=== PATIENT | male | born 1975 ===

== ENCOUNTER 2021-07-16 21:29 | Emergency (ER) | payer OTHER ==
[2021-07-16 21:43] VITALS: BP 167/71
--- NOTE | 2021-07-16 22:21 | XRay Report ---
CHEST 2 VIEWS INDICATION / CLINICAL INFORMATION: CHEST PAIN. COMPARISON: 06/12/2021 FINDINGS: SUPPORT DEVICES: None. HEART / MEDIASTINUM: No significant abnormality. LUNGS / PLEURA: Mild chronic interstitial lung disease is noted. No superimposed acute pulmonary proc ess. No pleural effusion. No interval change in the appearance of the chest x-ray.. No pneumothorax. ADDITIONAL FINDINGS: No significant additional findings. IMPRESSION: 1. No acute pulmonary disease. Mild chronic interstitial lung disease. Signer Name: Pamella Alberto MD Signed: 07/16/2021 10:17 PM Workstation Name: [id number]
[2021-07-16 22:58] LABS: Basophils # (Auto) 0.1 K/mm3 (0.0-0.1); Eosinophils # (Auto) 0.3 K/mm3 (0.0-0.4); Eosinophils % (Auto) 2.6 % (0.0-4.3); Hematocrit 37.3 % (35.5-45.6); Hemoglobin 12.4 gm/dl (11.8-15.2); Lymphocytes # (Auto) 2.9 K/mm3 (1.2-5.4); Lymphocytes % (Auto) 29.7 % (13.4-35.0); Mean Corpuscular HGB Conc 33 % (32-34); Mean Corpuscular Volume 76 fl (84-94); Monocytes # (Auto) 0.9 K/mm3 (0.0-0.8); Monocytes % (Auto) 9.3 % (0.0-7.3); Platelet Count 225 K/mm3 (140-440); Red Blood Count 4.92 M/mm3 (3.65-5.03); Red Cell Distribution Width 16.3 % (13.2-15.2)
[2021-07-16 23:32] LABS: Alanine Aminotransferase 10 units/L (7-56); BUN/Creatinine Ratio 14; Blood Urea Nitrogen 26 mg/dL (9-20); Calcium 9.5 mg/dL (8.4-10.2); Hemolysis Index 19
--- NOTE | 2021-07-17 08:58 | Electrocardiograph Report ---
[facility] Test Date: 2021-07-16 Test Time: 21:32:22 Pat Name: PRADEEP PATRICK Department: Room: Gender: M [employer]ater Worker: TIMI : 1975 Requested By: ED DOC Order Number: [id number] Reading MD: Kerwin Smith Measurements Intervals [place] Rate: 69 P: 57 WY: 149 QRS: 48 QRSD: 90 T: 109 QT: 383 QTc: 409 Interpretive Statements Sinus rhythm Anteroseptal infarct, age indeterminate Compared to ECG 06/14/2021 01:06:31 Left ventricular hypertrophy no longer present Early repolarization no longer present Myocardial infarct finding still present Electronically Signed On 07-17-2021 8:57:55 EDT by Kerwin Smith
== END 2021-07-18 11:35 | disposition left against medical advice (07) ==
LOC: ED 21:29
DX: R07.9 Chest pain, unspecified (principal); Z53.21 Procedure and treatment not carried out due to patient leaving prior to being seen by health care provider
CPT/HCPCS: 36415; 71046; 80053; 84484; 85025; 93005